=== PATIENT | male | born 1980 | race Caucasian/White ===

== ENCOUNTER → 2017-10-30 | Day surgery (SDC) | payer SELFPAY ==
[~2017-10-30] MED LIST: Adacel (T-DAP) 0.5 ML VIAL ONE; Bacitracin Zinc Ointment 30 gm TUBE ONE; Bupivacaine 0.5% 10 ML VIAL ONE; Bupivacaine PF 0.5% 30 ML VIAL ONE; Bupivacaine/Epinephrine 0.25% 30 ML VIAL ONE; CEFAZOLIN 1 GM VIAL ONE; CEFAZOLIN 1 GM, Syringe 2.5 ML in Sterile Water 7.5 ML SLOW IVP SCH; Dexamethasone 20 MG/5 ML VIAL ONE; Fentanyl 100 MCG/2 ML VIAL ONE; Glycopyrrolate 0.2 MG/ML 5 ML SYRINGE ONE; Ketorolac Tromethamine 30 MG/ML VIAL ONE; Lidocaine 1% PF 5 ML VIAL ONE; Ondansetron HCl/PF 4 MG/2 ML Vial ONE; Propofol 200 MG/20 ML VIAL ONE; Sodium Chloride 0.9% 10 ML ONE; Sterile Water 10 ML ONE; Succinylcholine Chloride 20 MG/ML 10 ml SYRINGE FS ONE
--- NOTE | 2017-10-30 14:37 | RAD ---
RIGHT LITTLE FINGER: Date: 10/30/17 HISTORY: Trauma to finger. FINDINGS: There is soft tissue amputation of the tip of the finger. There appears to be some partial amputation of the tuft associated with this. IMPRESSION: Soft tissue amputation of the tip of the finger. There is partial amputation of the tuft of the littl e finger in addition. POS: [facility]
--- NOTE | 2017-10-31 06:39 | OP ---
DATE OF SURGERY: 10/30/2017 PREOPERATIVE DIAGNOSES: 1. Right open distal phalanx fracture. 2. Avulsion fingertip right 3.4 x 1.5 cm wound right finger, small and nail bed avulsion. All of th is is at the right small finger. POSTOPERATIVE DIAGNOSES AND FINDINGS: 1. Right open distal phalanx fracture. 2. Avulsion fingertip right 3.4 x 1.5 cm wound right finger, small and nail bed avulsion. All of t his is at the right small finger. PROCEDURE PERFORMED: 1. Nail bed ablation via excision, total size was approximately 5 mm and left with only germinal mat vanesa left. 2. Exposed bone almost 1 cm with a hole through the dorsal nail. 3. Debridement of material associated open fracture distal phalanx and small finger. 4. Bone shortening as treatment of open fracture. 5. Partial closure of wound, 3 cm. 6. Full-thickness skin graft 1.5 cm x 6 mm. Harvested ipsilateral anteromedial forearm and applied to the small fingertip. The partial closure was complex closure, 3 cm flap. SPECIMEN REMOVED: None. FINDINGS: Minimal particle contamination. TOURNIQUET TIME: 17 minutes. ESTIMATED BLOOD LOSS: 5 mL. INDICATION: The patient was operating a dam when the dam had a gate that closed on the small finger causing the avulsion of nail and skin. He was in [facility], where this occurre d, drove himself to urgent care in the [facility], referred to me and I immediately said to nicolette holguin surgery. As soon as the operating room time was available, within 6 hours of his injury, he was t aken to the operating room. Within the operating room, the patient had anesthesia applied by [facility], general LMA randa hnique, he had a 8 mL metacarpophalangeal joint block with 0.5% Marcaine, no epinephrine at the small finger metacarpophalangeal joint and then he had 2 mL block proximal to the area of these full thick ness skin harvest. He then had the tourniquet inflated after exsanguination of the limb to 250 mmHg pressure. Here, with the tourniquet down, we could easily see the minimal particle contamination, de brided this area to include fat, soft tissue, and noticed the end of skin with a large radial-type fl ap that protruded almost 4 mm distal to the bone level. Then, we determined that the bone was inspec priscila, did not have gross contamination, but it was still approximately 4 mm protruding out from the faraz nula of the nail; and therefore, when wound was lifted up to the lunula, we could see there was only 1 to 2 mm of germinal matrix left, so we excised the entire nail bed and then prepared for irrigation after the debridement was completed. Irrigated with 4 liters of normal saline and Pulsavac pressure with antibiotics inside and then the patient had the tourniquet deflated. All the particles we had seen were removed and that were very few. Then, the radial base flap was now long enough to suture o garfield to the ulnar side at this area because the bone had been shortened as part of the debridement and treatment of material associated open fracture. Then, the flap was secured with a 5-0 nylon to the ulnar side and to the base of the nail. Then, this left a complete fat cover over the bone at the di stal end; and therefore, we were able to pull the fat and skin up leaving this time only 1-1/4 cm wou nd x 8 mm. This was the size of graft that was harvested in the ipsilateral antecubital fossa, close d primarily using a running 4-0 Monocryl and then fibrin glue. We then thinned the graft, bolused it with 4-0 nylon in all four corners, secured it to the exact area covering all the fat without any ex posed bone being palpated using a running 6-0 chromic and then tied Bacitracin, Adaptic, and a minera l oil soaked cotton ball to secure the bolster defect and this was excellent. We then placed bulky d ressing over each of the 2 wounds with no need for brace or splint and the patient left the operating room without evidence of anesthetic or operative complication.
== END ==
LOC: SCSER 13:27 → SDC 14:50
PROVIDERS: ATTEND Orthopaedic Surgery Hand Surgery
PROC: 0PST04Z Reposition Right Finger Phalanx with Internal Fixation Device, Open Approach (ICD-10-PCS; principal; 2017-10-30)
PROC: 0HQFXZZ Repair Right Hand Skin, External Approach (ICD-10-PCS; principal; 2017-10-30)
PROC: 0HRFX73 Replacement of Right Hand Skin with Autologous Tissue Substitute, Full Thickness, External Approach (ICD-10-PCS; principal; 2017-10-30)
DX: S62.636D Displaced fracture of distal phalanx of right little finger, subsequent encounter for fracture with routine healing (principal)
CPT/HCPCS: 12002; 90471; 90715; 96372; 96374; A4216; J0690; J1100; J1885; J2001; J2405; J2704; J3010; J3490; S0020